=== PATIENT | female | born 1935 | race African-American/Black ===

== ENCOUNTER 2016-12-18 12:49 | Inpatient (IN) | payer MEDICARE, MEDICAID ==
[~2016-12-18] VITALS: Ht 167.6 cm; Wt 71.2 kg
[~2016-12-18 12:49] MED LIST: ALLO100T PO; CARV12.545 PO; CYAN10009 PO; FERR-43 PO; FURO80TA87 PO; GLIM4TAB2 PO; ISOS60TA4 PO; LEVO50TA8 PO; LISI10TA5 PO; OMEG1CAP17 PO; OMEP20CA4 PO; PARO-41 PO; POTA10TA11 PO; ROSU40TA PO
[2016-12-18] MEDS ORDERED: CYAN10009 PO (13:26)
[2016-12-18] MEDS ORDERED: CHOL100044 GT (13:27)
[2016-12-18] MEDS ORDERED: ASPI-986 PO (13:28)
[2016-12-18] MEDS ORDERED: SPIR25TA4 PO (13:29)
[2016-12-18] MEDS ORDERED: MEGE20TA2 GT (13:29)
[2016-12-18 14:20] LABS: BASOPHILS % 0.5 % (0.0-2.0); EOSINOPHILS % 3.6 % (0.0-5.0); HEMATOCRIT. 36.5 % (36.0-48.0); HEMOGLOBIN. 11.9 g/dL (12.0-16.0); LYMPHOCYTES % 26.7 % (20.0-50.0); MEAN CORPUSCULAR VOLUME 85.6 fL (81.0-99.0); MEAN PLATELET VOLUME 8.7 fl (7.4-10.4); MONOCYTES % 10.4 % (2.0-8.0); NEUTROPHILS % 58.8 % (40.0-76.0); PLATELET 152 x1000/uL (130-400); RED BLOOD CELL COUNT 4.26 mill/uL (4.2-5.4); RED CELL DISTRIBUTION WIDTH 15.4 % (11.6-14.6)
[2016-12-18 14:34] LABS: INR 1.1; PARTIAL THROMBOPLASTIN TIME 25.1 sec (23.4-31.0); PROTHROMBIN TIME 11.5 sec (9.4-11.6)
[2016-12-18 14:39] LABS: CARBON DIOXIDE 27 mEq/L (21-32); CHLORIDE 105 mEq/L (98-107); TROPONIN I 0.09 ng/mL (0.00-0.04)
[2016-12-18 14:42] LABS: D-DIMER 5.86 mg/L FEU (<0.50)
[2016-12-18 15:13] LABS: CLARITY URINE CLOUDY (CLEAR); COLOR URINE YELLOW (YELLOW); GLUCOSE URINE NEGATIVE (NEGATIVE); KETONES URINE NEGATIVE (NEGATIVE); LEUKOCYTE ESTERASE URINE 2+ (NEGATIVE); NITRITE URINE NEGATIVE (NEGATIVE); OCCULT BLOOD URINE 1+ (NEGATIVE); PROTEIN URINE 2+ (NEGATIVE); SPECIFIC GRAVITY URINE 1.019 (1.005-1.030)
[2016-12-18] MEDS ORDERED: LEVOFLOXACIN 750MG PREMIX 150 ML IV ONE (15:30)
[2016-12-18] MEDS ORDERED: POTASSIUM CHLORIDE 20MEQ TABLET SR PO ONE (17:00)
[2016-12-18 20:00] VITALS: BP 125/59
[2016-12-18] MEDS ORDERED: DEXTROSE 50% WATER 50ML SYRINGE IV PRN (21:45)
[2016-12-18 22:00] VITALS: BP 115/75
[2016-12-18] MEDS ORDERED: ACETAMINOPHEN 650MG SUPP PR PRN (22:30)
[2016-12-18] MEDS ORDERED: HYDROCODONE/ACETAMINOPHEN 5/325MG TABLET PO PRN (22:30)
[2016-12-18] MEDS ORDERED: ONDANSETRON HCL 4MG/2ML VIAL IV PRN (22:30)
[2016-12-18] MEDS ORDERED: NA PHOS,M-B/NA PHOS,DI-BA ENEMA 118ML PR PRN (22:30)
[2016-12-18] MEDS ORDERED: MAGNESIUM/ALUMINUM HYDROXIDE/SIMETHICONE 30ML UDC PO PRN (22:30)
[2016-12-18] MEDS ORDERED: DOCUSATE SODIUM 100MG CAPSULE PO PRN (22:30)
[2016-12-18] MEDS ORDERED: CLONIDINE 0.1MG TABLET PO PRN (22:30)
[2016-12-18] MEDS ORDERED: ACETAMINOPHEN 325MG TABLET PO PRN (22:30)
[2016-12-18] MEDS ORDERED: DIPHENHYDRAMINE 50MG/ML VIAL IV PRN (22:30)
[2016-12-18] MEDS ORDERED: IPRATROPIUM/ALBUTEROL 0.5-3(2.5)MG/3ML NEB INH PRN (22:30)
[2016-12-18] MEDS ORDERED: GUAIFENESIN 200MG/10ML SUGAR FREE UDC PO PRN (22:30)
[2016-12-18] MEDS ORDERED: ACETAMINOPHEN 650MG/20.3ML UDC GT PRN (22:30)
[2016-12-18 23:19] VITALS: BP 125/59
[2016-12-19] VITALS (10 sets, daily range): BP systolic 106–139; BP diastolic 49–95
[2016-12-19] MEDS: BLOOD SUGAR DIAGNOSTIC STRIP TEST SCH ×4 (05:52→20:13)
[2016-12-19] MEDS: SODIUM CHLORIDE 0.9% INJ 3ML FLUSH IVF SCH ×2 (05:52→15:04)
[2016-12-19] MEDS: INSULIN LISPRO 100 UNITS/ML SUBCUT SCH ×4 (06:01→20:24)
[2016-12-19 07:01] LABS: BASOPHILS % 0.4 % (0.0-2.0); EOSINOPHILS % 4.2 % (0.0-5.0); HEMATOCRIT. 37.1 % (36.0-48.0); HEMOGLOBIN. 12.2 g/dL (12.0-16.0); LYMPHOCYTES % 41.3 % (20.0-50.0); MEAN CORPUSCULAR HEMOGLOBIN 28.2 pg (28.0-32.0); MEAN CORPUSCULAR VOLUME 85.5 fL (81.0-99.0); MEAN PLATELET VOLUME 9.4 fl (7.4-10.4); MONOCYTES % 12.4 % (2.0-8.0); NEUTROPHILS % 41.7 % (40.0-76.0); PLATELET 139 x1000/uL (130-400); RED BLOOD CELL COUNT 4.34 mill/uL (4.2-5.4); RED CELL DISTRIBUTION WIDTH 15.4 % (11.6-14.6)
[2016-12-19 07:53] LABS: TROPONIN I 0.1 ng/mL (0.00-0.04)
[2016-12-19 07:59] LABS: CARBON DIOXIDE 27 mEq/L (21-32); CHLORIDE 107 mEq/L (98-107); HDL CHOLESTEROL 61 mg/dL (40-59); LDL CHOLESTEROL 70 mg/dL (5-100); TROPONIN I 0.11 ng/mL (0.00-0.04)
[2016-12-19] MEDS: ENOXAPARIN 40MG/0.4ML SYR SUBCUT SCH (08:53)
[2016-12-19] MEDS ORDERED: POTASSIUM CHLORIDE 20MEQ TABLET SR PO ONE (13:15)
[2016-12-19] MEDS ORDERED: POTASSIUM CHLORIDE 20MEQ TABLET SR PO SCH (14:30)
[2016-12-19] MEDS: ASPIRIN 325MG TABLET PO SCH (15:00)
[2016-12-19] MEDS: FERROUS SULFATE 325MG TABLET PO SCH (15:00)
[2016-12-19] MEDS: ALLOPURINOL 100 MG TABLET PO SCH (15:01)
[2016-12-19 15:55] LABS: TROPONIN I 0.06 ng/mL (0.00-0.04)
[2016-12-19] MEDS: FUROSEMIDE 80MG TABLET PO SCH (16:41)
[2016-12-19] MEDS: GLIMEPIRIDE 4MG TABLET PO SCH (17:17)
[2016-12-19] MEDS: LISINOPRIL 10MG TABLET PO SCH (20:07)
[2016-12-19] MEDS: CARVEDILOL 25MG TABLET PO SCH (20:08)
[2016-12-19] MEDS: ISOSORBIDE MONONITRATE 60MG TABLET SR 24HR PO SCH (20:08)
[2016-12-19] MEDS ORDERED: LISINOPRIL 20MG TABLET PO SCH (21:00)
[2016-12-20] VITALS (8 sets, daily range): BP systolic 83–113; BP diastolic 36–70
[2016-12-20] MEDS: LEVOTHYROXINE SODIUM 50MCG TABLET PO SCH (06:53)
[2016-12-20] MEDS: BLOOD SUGAR DIAGNOSTIC STRIP TEST SCH ×4 (06:53→21:16)
[2016-12-20] MEDS: INSULIN LISPRO 100 UNITS/ML SUBCUT SCH ×4 (06:53→21:15)
[2016-12-20] MEDS: GLIMEPIRIDE 4MG TABLET PO SCH ×2 (06:53→18:33)
[2016-12-20] MEDS: SODIUM CHLORIDE 0.9% INJ 3ML FLUSH IVF SCH ×4 (06:54→21:16)
[2016-12-20] MEDS: CARVEDILOL 25MG TABLET PO SCH ×2 (09:00→21:15)
[2016-12-20] MEDS: FUROSEMIDE 80MG TABLET PO SCH (09:00)
[2016-12-20] MEDS: SPIRONOLACTONE 25MG TABLET PO SCH (09:00)
[2016-12-20] MEDS ORDERED: CARVEDILOL 12.5MG TABLET PO SCH (09:00)
[2016-12-20] MEDS: LISINOPRIL 10MG TABLET PO SCH (09:00)
[2016-12-20] MEDS: CYANOCOBALAMIN 1000MCG TABLET PO SCH (09:29)
[2016-12-20] MEDS: ALLOPURINOL 100 MG TABLET PO SCH (09:30)
[2016-12-20] MEDS: CHOLECALCIFEROL (D3) 1000 UNIT TABLET PO SCH (09:30)
[2016-12-20] MEDS: ISOSORBIDE MONONITRATE 60MG TABLET SR 24HR PO SCH (09:32)
[2016-12-20] MEDS: POTASSIUM CHLORIDE 20MEQ TABLET SR PO SCH (09:33)
[2016-12-20] MEDS: ENOXAPARIN 40MG/0.4ML SYR SUBCUT SCH (09:34)
[2016-12-20] MEDS: PAROXETINE HCL 20MG TABLET PO SCH (09:34)
[2016-12-20 13:03] LABS: BASOPHILS % 0.4 % (0.0-2.0); EOSINOPHILS % 6.1 % (0.0-5.0); HEMATOCRIT. 34.9 % (36.0-48.0); HEMOGLOBIN. 11.5 g/dL (12.0-16.0); LYMPHOCYTES % 32.8 % (20.0-50.0); MEAN CORPUSCULAR VOLUME 85.1 fL (81.0-99.0); MEAN PLATELET VOLUME 8.7 fl (7.4-10.4); MONOCYTES % 12.8 % (2.0-8.0); NEUTROPHILS % 47.9 % (40.0-76.0); PLATELET 138 x1000/uL (130-400); RED CELL DISTRIBUTION WIDTH 15.6 % (11.6-14.6)
[2016-12-20 13:11] LABS: CARBON DIOXIDE 31 mEq/L (21-32); CHLORIDE 107 mEq/L (98-107)
[2016-12-20] MEDS: FERROUS SULFATE 325MG TABLET PO SCH (15:20)
[2016-12-20] MEDS: ASPIRIN 325MG TABLET PO SCH (15:20)
[2016-12-20] MEDS: FUROSEMIDE 40MG TABLET PO SCH (21:00)
[2016-12-21] VITALS: BP 99/25
[2016-12-21 02:00] VITALS: BP 98/55
[2016-12-21 04:00] VITALS: BP 123/69
[2016-12-21 06:00] VITALS: BP 102/56
[2016-12-21] MEDS: BLOOD SUGAR DIAGNOSTIC STRIP TEST SCH ×2 (06:29→11:55)
[2016-12-21] MEDS: LEVOTHYROXINE SODIUM 50MCG TABLET PO SCH (06:29)
[2016-12-21] MEDS: GLIMEPIRIDE 4MG TABLET PO SCH (06:29)
[2016-12-21] MEDS: INSULIN LISPRO 100 UNITS/ML SUBCUT SCH ×2 (06:30→11:55)
[2016-12-21] MEDS: SODIUM CHLORIDE 0.9% INJ 3ML FLUSH IVF SCH (06:32)
[2016-12-21 08:00] VITALS: BP 98/53
[2016-12-21] MEDS: FUROSEMIDE 40MG TABLET PO SCH (08:19)
[2016-12-21] MEDS: ALLOPURINOL 100 MG TABLET PO SCH (08:19)
[2016-12-21] MEDS: POTASSIUM CHLORIDE 20MEQ TABLET SR PO SCH (08:19)
[2016-12-21] MEDS: ENOXAPARIN 40MG/0.4ML SYR SUBCUT SCH (08:19)
[2016-12-21] MEDS: SPIRONOLACTONE 25MG TABLET PO SCH (08:20)
[2016-12-21] MEDS: CYANOCOBALAMIN 1000MCG TABLET PO SCH (08:20)
[2016-12-21] MEDS: CARVEDILOL 25MG TABLET PO SCH (08:21)
[2016-12-21] MEDS: PAROXETINE HCL 20MG TABLET PO SCH (08:21)
[2016-12-21] MEDS: CHOLECALCIFEROL (D3) 1000 UNIT TABLET PO SCH (08:23)
[2016-12-21] MEDS ORDERED: LISINOPRIL 5MG TABLET PO SCH (09:00)
[2016-12-21] MEDS ORDERED: [UNRECOGNIZED DRUG - OTHER] PO SCH (09:00)
[2016-12-21] MEDS: FERROUS SULFATE 325MG TABLET PO SCH (09:05)
[2016-12-21] MEDS: ASPIRIN 325MG TABLET PO SCH (09:05)
[2016-12-21 10:00] VITALS: BP 116/66
== END 2016-12-21 12:20 | disposition home or self-care (01) | DRG 314 ==
LOC: ER 13:00 → EDBEDREQ 16:04 → EDBEDREQTM 16:04 → EDBEDREQ 16:46 → 3WST 16:47 → ENRESERV 18:27
PROVIDERS: ADMIT Family Medicine; ATTEND Family Medicine
PROC: 4B02XTZ Measurement of Cardiac Defibrillator, External Approach (ICD-10-PCS; principal; 2016-12-20)
DX: T82.847A Pain due to cardiac prosthetic devices, implants and grafts, initial encounter (principal); J96.90 Respiratory failure, unspecified, unspecified whether with hypoxia or hypercapnia; I50.20 Unspecified systolic (congestive) heart failure; I42.9 Cardiomyopathy, unspecified; I11.0 Hypertensive heart disease with heart failure; E11.9 Type 2 diabetes mellitus without complications; E55.9 Vitamin D deficiency, unspecified; E78.00 Pure hypercholesterolemia, unspecified; E78.5 Hyperlipidemia, unspecified; F32.9 Major depressive disorder, single episode, unspecified; I25.5 Ischemic cardiomyopathy; I25.118 Atherosclerotic heart disease of native coronary artery with other forms of angina pectoris; Y83.8 Other surgical procedures as the cause of abnormal reaction of the patient, or of later complication, without mention of misadventure at the time of the procedure; J44.9 Chronic obstructive pulmonary disease, unspecified; R79.1 Abnormal coagulation profile; Z85.850 Personal history of malignant neoplasm of thyroid; Z95.1 Presence of aortocoronary bypass graft; Z95.810 Presence of automatic (implantable) cardiac defibrillator; Z88.0 Allergy status to penicillin; Z79.82 Long term (current) use of aspirin; Z79.899 Other long term (current) drug therapy; Y92.89 Other specified places as the place of occurrence of the external cause
CPT/HCPCS: 36415; 71010; 78582; 80048; 80053; 80061; 81001; 82550; 82962; 83605; 83690; 83735; 83880; 84443; 84484; 85025; 85379; 85610; 85730; 87040; 87077; 87086; 87186; 93005; 93306; 96365; 99285; A9558; J1650; J1815; J1956

== ENCOUNTER → 2017-10-10 | Day surgery (SDC) | payer MEDICARE, MEDICAID ==
[~2017-10-10] VITALS: Ht 167.6 cm; Wt 68.0 kg
[~2017-10-10] MED LIST changes: +APIX5TAB MT; +ASPI-1159 PO; +CARV12.545 MT; -CARV12.545 PO; +CHOL100044 PO; +DULA1.5P SQ; -FURO80TA87 PO; -GLIM4TAB2 PO; -ISOS60TA4 PO; +LIDOCAINE HCL 1% 20ML VIAL (Pyxis) INJ ONE; -LISI10TA5 PO; +MEGE20TA2 GT; +ONDANSETRON HCL 4MG/2ML VIAL IV PRN; -PARO-41 PO; -POTA10TA11 PO; +PROPOFOL 200MG/20ML VIAL IV ONE; +REPA2TAB8 MT; +REPA2TAB8 PO
[2017-10-10 08:55] LABS: INR 1.2; PARTIAL THROMBOPLASTIN TIME 22.4 sec (23.4-31.0); PROTHROMBIN TIME 12.2 sec (9.4-11.6)
[2017-10-10 09:19] LABS: BASOPHILS % 0.6 % (0.0-2.0); EOSINOPHILS % 2.4 % (0.0-5.0); HEMATOCRIT. 36.8 % (36.0-48.0); HEMOGLOBIN. 11.7 g/dL (12.0-16.0); LYMPHOCYTES % 31.1 % (20.0-50.0); MEAN CORPUSCULAR HEMOGLOBIN 27.3 pg (28.0-32.0); NEUTROPHILS % 56.9 % (40.0-76.0); RED BLOOD CELL COUNT 4.28 mill/uL (4.2-5.4); RED CELL DISTRIBUTION WIDTH 17.4 % (11.6-14.6)
[2017-10-10 09:56] LABS: MEAN PLATELET VOLUME 10.5 fl (7.4-10.4); PLATELET 132 x1000/uL (130-400)
== END | disposition home or self-care (01) ==
LOC: CARD 06:09
PROVIDERS: ATTEND Internal Medicine Clinical Cardiac Electrophysiology
DX: I48.1 Persistent atrial fibrillation (principal); I13.0 Hypertensive heart and chronic kidney disease with heart failure and stage 1 through stage 4 chronic kidney disease, or unspecified chronic kidney disease; E11.22 Type 2 diabetes mellitus with diabetic chronic kidney disease; N18.3 Chronic kidney disease, stage 3 (moderate); E89.0 Postprocedural hypothyroidism; R06.02 Shortness of breath; I25.5 Ischemic cardiomyopathy; I50.9 Heart failure, unspecified; I25.119 Atherosclerotic heart disease of native coronary artery with unspecified angina pectoris; E78.5 Hyperlipidemia, unspecified; Z79.82 Long term (current) use of aspirin; Z79.899 Other long term (current) drug therapy; Z85.850 Personal history of malignant neoplasm of thyroid; Z87.891 Personal history of nicotine dependence; Z95.1 Presence of aortocoronary bypass graft; Z95.810 Presence of automatic (implantable) cardiac defibrillator
CPT/HCPCS: 36415; 80048; 82962; 85025; 85610; 85730; 92960; 93005; 93284; J3490; J2704